=== PATIENT | female | born 1990 | race Hispanic/Latino ===

== ENCOUNTER 2018-07-27 16:19 | Emergency (ER) | payer MEDICAID ==
[2018-07-27 16:32] VITALS: BMI 30.9
[2018-07-27 16:44] VITALS: BP 121/75; PULSE 74; RESP 18; TEMP 98.2; O2SAT 98
[2018-07-27] MEDS ORDERED: Lidocaine 1% Inj (20ml) IJ STA (17:02)
[2018-07-27] MEDS ORDERED: Lidocaine 1% Inj (20ml) ONE (17:06)
--- NOTE | 2018-07-27 17:19 | ED PDOC ---
Arrival/HPI - General Chief Complaint: Abnormal Skin Integrity Time Seen by Provider: 07/27/18 16:26 Historian: Patient, Family - History of Present Illness Narrative History of Present Illness (Text): 07/27/18 17:02 28 year old female with no significant past medical history, presents to the emergency department after sustaining a laceration to the left index finger 3.5 hours ago. Patient reports she was cutting a bagel when she sustained the laceration. Patient denies any other complaints. Patient denies any fever, chills, chest pain, shortness of breath, headache, dizziness, or any other complaints. PMD: Dr. Ross Wells Time/Duration: Other (3.5 hours) Symptom Onset: Sudden Activities at Onset: Light Context: Home Past Medical History - Provider Review Nursing Documentation Reviewed: Yes - Cardiac Hx Cardiac Disorders: No Hx Hypertension: No - Pulmonary Hx Tuberculosis: No - Neurological HX Cerebrovascular Accident: No Hx Seizures: No - Hematological/Oncological Hx Cancer: No - Genitourinary/Gynecological Hx Sexually Transmitted Diseases: No - Psychiatric Hx Anxiety: Yes Hx Substance Use: No - Suicidal Assessment Feels Threatened In Home Enviroment: No Family/Social History - Physician Review Nursing Documentation Reviewed: Yes Family/Social History: No Known Family HX Smoking Status: Light Smoker < 10 Cigarettes Daily Hx Alcohol Use: No Hx Substance Use: No Substance used: any available Allergies/Home Meds Allergies/Adverse Reactions: Allergies Sulfa (Sulfonamide Antibiotics) Allergy (Verified 07/27/18 17:01) RASH codeine Adverse Reaction (Verified 07/27/18 17:01) RASH Review of Systems - Physician Review All systems were reviewed & negative as marked: Yes - Review of Systems Constitutional: absent: Fevers, Other (Chills) Respiratory: absent: SOB Cardiovascular: absent: Chest Pain Skin: Laceration (to left index finger) Neurological: absent: Headache, Dizziness Physical Exam - Physical Exam Narrative Physical Exam (Text): Gen: VS reviewed, alert, well developed, well nourished, nontoxic, mild distress. Eye: EOMI, PERRL. Neck: no JVD, supple, no adenopathy. Ext: no edema. Skin: 2.0cm flap to the left index finger on the palmar surface between MCP and PIP created by knife. Also small incision to the left thumb. Neurovascularly intact. good color, no rash, no cyanosis. Psych: responds appropriately to questions, normal affect. Neuro: oriented x 3, CN2-12 intact grossly, motor intact, sensation intact. 07/28/18 12:16 Vital Signs Reviewed: Yes Vital Signs Temp Pulse Resp BP Pulse Ox 07/27/18 16:19 98.2 F 74 18 121/75 98 Temperature: Afebrile Blood Pressure: Normal Pulse: Regular Respiratory Rate: Normal Medical Decision Making ED Course and Treatment: 07/27/18 17:02 Impression: 28 year old female presents complaining of 2cm laceration to the left 2nd digit palmar surface s/p cutting a bagel 3.5 hours ago. Plan: -- Lidocaine 1% -- Laceration repair -- Reassess and disposition Progress Notes: PROCEDURE: LACERATION REPAIR Timeout performed before procedure and verbal consent attained Performed by the emergency provider Location: left 2nd digit palmar surface Length: 2 cm Description: clean wound edges,no foreign bodies Distal CMS: Normal. No deficits. Neurovascularly intact. Anesthesia: Lidocaine 1% lido without epi. with digital block 4CC Preparation: The wound was cleaned with NS and Betadyne. The area was prepped and draped in the usual sterile fashion. Exploration: The wound was explored and no foreign bodies were found. Procedure: The wound was closed with 5-0 prolene. There was good approximation. In total, 4 sutures were used. Post-Procedure: Good closure and hemostasis. The patient tolerated the procedure well and there were no complications. Post procedure dressing applied.and aluminum finger splint. 07/27/18 18:01 On re-evaluation, patient is in no acute distress. I have discussed the plan with the patient, who expresses understanding. Patient in agreement with plan to be discharged home. Patient is stable for discharge. Patient was instructed to follow up with physician or return if symptoms worsen or new concerning symptoms arise. - Medication Orders Current Medication Orders: Discontinued Medications Lidocaine HCl (Lidocaine 1% (20ml)) 0 ml IJ STAT STA Stop: 07/27/18 17:03 - Scribe Statement The provider has reviewed the documentation as recorded by the Patrickibdemetra Wolff Provider Scribe Attestation: All medical record entries made by the Scribe were at my direction and personally dictated by me. I have reviewed the chart and agree that the record accurately reflects my personal performance of the history, physical exam, medical decision making, and the department course for this patient. I have also personally directed, reviewed, and agree with the discharge instructions and disposition. Disposition/Present on Arrival - Present on Arrival Any Indicators Present on Arrival: No History of DVT/PE: No History of Uncontrolled Diabetes: No Urinary Catheter: No History of Decub. Ulcer: No History Surgical Site Infection Following: None - Disposition Have Diagnosis and Disposition been Completed?: Yes Diagnosis: Finger laceration Disposition: HOME/ ROUTINE Disposition Time: 18:01 Patient Plan: Discharge Condition: STABLE Discharge Instructions (ExitCare): Laceration Repair With Stitches (DC) Additional Instructions: use the splint for at least 24 hours. apply antibiotic ointment at least once daily. after 24 hours, wash the wound with regular soap and water. return for any evidence of infection including increased pain in the finger, increased redness, increased swelling, red streaks extending up the arm. return in 7-10 days to have the sutures removed. you should ask your employer about official policy of handling food with wounds on the hand. Referrals: Ross Wells MD [Primary Care Provider] - Follow up with primary Forms: [facility] (Urdu), WORK NOTE
[2018-07-27] MEDS ORDERED: Bacitracin 500 Units/gm Oint Foilpak UD ONE (17:53)
[2018-07-27] MEDS ORDERED: TDAP Vaccine 0.5 mL Syr IM ONE (17:58)
== END 2018-07-27 18:12 | disposition home or self-care (01) ==
LOC: ED 16:19
DX: S61.211A Laceration without foreign body of left index finger without damage to nail, initial encounter (principal); W26.0XXA Contact with knife, initial encounter; Y93.G1 Activity, food preparation and clean up; Z23 Encounter for immunization